=== PATIENT | male | born 1940 | race American Indian/Alaskan Native ===

== ENCOUNTER 2017-06-12 12:16 | Outpatient (CLI) | payer MEDICARE ==
--- NOTE | 2017-06-12 13:17 | XRay Report ---
Chest 2 views. History: Wheezing. Findings: The heart and pulmonary vessels are normal. The lungs are free of acute infiltrates. There is an ill-defined 8 mm in diameter density projected over the fifth left posterior rib. This probably represents a granuloma. No other focal pulmonary abnormalities are seen. There is no pleural fluid. Impression: No acute findings. Probable left upper lobe granuloma.
== END 2017-06-12 12:17 | disposition home or self-care (01) ==
LOC: XRAY 12:16
DX: R06.2 Wheezing (principal)
CPT/HCPCS: 71020